=== PATIENT | male | born 1980 | race Caucasian/White ===

== ENCOUNTER 2024-08-21 22:17 | Emergency (ER) | payer OTHER ==
[2024-08-21] MEDS: Iopamidol 612 MG/ML 100 ML Bottle IVPUSH ONE (22:44)
[2024-08-21] MEDS: Ondansetron 4 MG/2 ML SDV IVPUSH ONE (22:45)
[2024-08-21] MEDS: HYDROmorphone 1 MG/ML Syringe IVPUSH ONE ×2 (22:45→23:58)
[2024-08-21 22:46] LABS: BASOPHILS PERCENT AUTO 0.2 % (0.0-1.0); HEMATOCRIT 39.1 % (40.0-54.0); HEMOGLOBIN 13.4 g/dL (14.0-18.0); LYMPHOCYTES PERCENT AUTO 15.3 % (20.5-50.1); MEAN CORPUSCULAR HEMOGLOBIN 29.5 pg (27.0-34.0); MEAN CORPUSCULAR HGB CONC 34.3 g/dL (33.0-35.0); MEAN CORPUSCULAR VOLUME 86.1 fL (80-100); NEUTROPHILS PERCENT AUTO 73.5 % (42.2-75.2); PLATELET COUNT,PLT 327 10^3/uL (150-450); RED BLOOD CELL COUNT 4.54 10^6/uL (4.6-6.2); WHITE BLOOD CELL COUNT,WBC 11.9 10^3/uL (5.0-10.0)
[2024-08-21] MEDS: Lactated Ringers 1,000 ML IV SCH (22:46)
[2024-08-21 23:06] LABS: ALBUMIN 3.6 g/dL (3.4-5.0); BILIRUBIN TOTAL 0.3 mg/dL (0.2-1.0); BUN/CREATININE RATIO 13.8 (No establ ref range); CALCIUM 9.2 mg/dL (8.5-10.1); CREATININE 0.94 mg/dL (0.70-1.30); EST CRCL DRUG DOSING (CG) 104.62 mL/min; MAGNESIUM 2.2 mg/dL (1.8-2.4); PROTEIN TOTAL,TP 7.1 g/dL (6.4-8.2)
[2024-08-21 23:10] LABS: LACTIC ACID 1.4 mmol/L (0.4-2.0)
[2024-08-21] MEDS ORDERED: Naloxone 2 MG/2 ML Syringe IVPUSH PRN (23:52)
[2024-08-21] MEDS ORDERED: Benzocaine 20% Topical Spray UD MUCMEM ONE (23:53)
[2024-08-21] MEDS: Benzocaine 20% Topical Spray UD MUCMEM ONE (23:58)
[2024-08-22] MEDS: metroNIDAZOLE/Normal Saline 500 MG in Premix Bag 1 BAG IV ONE
== END 2024-08-22 01:17 ==
LOC: DL.ED 22:17
DX: K56.609 Unspecified intestinal obstruction, unspecified as to partial versus complete obstruction (principal); K55.9 Vascular disorder of intestine, unspecified; F17.200 Nicotine dependence, unspecified, uncomplicated
CPT/HCPCS: 36415; 43752; 74018; 74177; 80053; 83605; 83690; 83735; 85025; 96361; 96365; 96375; 96376; 99285; A9270; J1171; J1836; J2405; J7120; Q9967